=== PATIENT | female | born 2005 | race Hispanic/Latino ===

== ENCOUNTER 2023-02-22 14:05 | Emergency (ER) | payer OTHER ==
[~2023-02-22] VITALS: Ht 152.4 cm; Wt 59.0 kg
[2023-02-22 14:40] LABS: BASOPHILS # (AUTO) 0.1 (0.0-0.1); BASOPHILS % 0.8 % (0.0-1.0); EOSINOPHILS # (AUTO) 0.2 (0.0-0.4); EOSINOPHILS % 1.6 % (0.0-6.0); HEMATOCRIT 40.3 % (34.2-44.1); HEMOGLOBIN 13.1 g/dL (12.0-16.0); LYMPHOCYTES # (AUTO) 1.8 (1.0-3.2); LYMPHOCYTES % 17.8 % (18.0-39.1); MEAN CORPUSCULAR HEMOGLOBIN 26.5 pg (28-32); MEAN CORPUSCULAR HGB CONC 32.5 g/dL (31-35); MEAN CORPUSCULAR VOLUME 81.4 fL (81-99); MONOCYTES # (AUTO) 0.9 (0.2-0.8); MONOCYTES % 9.3 % (4.4-11.3); NEUTROPHILS # (AUTO) 6.9 (2.1-6.9); NEUTROPHILS % 70.3 % (38.7-80.0); PLATELET COUNT 294 x10e3/uL (140-360); RED BLOOD COUNT 4.95 x10e6/uL (3.6-5.1); RED CELL DISTRIBUTION WIDTH 14.5 % (11.7-14.4)
[2023-02-22 14:50] LABS: INR 0.92; PARTIAL THROMBOPLASTIN TIME 31.9 seconds (23.8-35.5); PROTHROMBIN TIME 12.9 seconds (11.9-14.5)
[2023-02-22 14:57] LABS: ALBUMIN 4.7 g/dL (3.5-5.0); ALBUMIN/GLOBULIN RATIO 1.4 (0.8-2.0); ANION GAP 12.8 mmol/L (8-16); CALCIUM 9.6 mg/dL (8.4-10.2); CREATININE, SERUM 0.79 mg/dL (0.57-1.11); POTASSIUM 3.8 mmol/L (3.5-5.1)
[2023-02-22] MEDS ORDERED: CLINDAMYCIN 600MG / 50ML 50 ML IV ONE (15:00)
[2023-02-22] MEDS ORDERED: IOPAMIDOL 370 MG/ML 100 ML INFUS..BTL INJ ONE (15:26)
[2023-02-22] MEDS ORDERED: ULTRAM 50MG50 MG PO (18:02)
[2023-02-22] MEDS ORDERED: CLINDAMYCIN HC150 MG PO (18:02)
== END 2023-02-22 19:29 | disposition home or self-care (01) ==
LOC: ER 14:13
DX: K04.7 Periapical abscess without sinus (principal)
CPT/HCPCS: 36415; 70487; 80053; 84702; 85025; 85610; 85730; 99284; Q9967

== ENCOUNTER 2024-10-15 23:10 | Emergency (ER) | payer OTHER ==
[~2024-10-15] VITALS: Ht 154.9 cm; Wt 63.5 kg
[~2024-10-15 23:10] MED LIST: CLINDAMYCIN HC150 MG PO; ULTRAM 50MG50 MG PO
[2024-10-16 00:15] VITALS: PULSE 73; RESP 16; TEMP 98.6; O2SAT 100
[2024-10-16] MEDS: LIDOCAINE HCL 1% LOCAL INJ 20 ML VIAL INJ STA (00:25)
== END 2024-10-16 00:27 | disposition home or self-care (01) ==
LOC: ER 23:25
DX: S61.211A Laceration without foreign body of left index finger without damage to nail, initial encounter (principal); W26.0XXA Contact with knife, initial encounter; Y92.89 Other specified places as the place of occurrence of the external cause; F41.9 Anxiety disorder, unspecified; Z87.19 Personal history of other diseases of the digestive system
CPT/HCPCS: 99283